=== PATIENT | male | born 1945 | race Caucasian/White ===

== ENCOUNTER 2016-09-26 23:38 | Emergency (ER) | payer MEDICARE ==
[2016-09-26 23:45] VITALS: BP 148/93
[2016-09-27] MEDS ORDERED: Ketorolac INJ* 60 MG/2 ML VIAL IM ONE (01:06)
--- NOTE | 2016-09-27 02:08 | ED ---
Bhavna Torres Edward, scribed for Cristian Yepez MD on 09/27/16 at 0107 . Upper Extremity Pain - HPI Summary HPI Summary: 71 y/o male presents to ED c/o gradual onset, severe R wrist pain starting this morning. The pain is rated 8/10 in severity at triage. The pain is aggravated with movement of the wrist. PMHx chronic wrist pain. - History of Current Complaint Chief Complaint: EDExtremityUpper Stated Complaint: RT WRIST PAIN Time Seen by Provider: 09/27/16 01:03 Hx Obtained From: Patient Timing: Constant, Lasting Hours Severity Currently: Severe Pain Location: Wrist - R wrist Aggravating Factor(s): Movement Associated Signs & Symptoms: Positive: Negative - Allergies/Home Medications Allergies/Adverse Reactions: Allergies Allergy/AdvReac Type Severity Reaction Status Date / Time No Known Allergies Allergy Verified 09/26/16 23:42 PMH/Surg Hx/FS Hx/Imm Hx Previously Healthy: No Cardiovascular History: Reports: Hx Hypertension Infectious Disease History: No Infectious Disease History: Denies: Traveled Outside the [place] in Last 30 Days - Social History Alcohol Use: Occasionally Hx Substance Use: No Substance Use Type: Reports: None Hx Tobacco Use: No Smoking Status (MU): Former Smoker Review of Systems Constitutional: Negative Eyes: Negative ENT: Negative Cardiovascular: Negative Respiratory: Negative Gastrointestinal: Negative Genitourinary: Negative Positive: Arthralgia - R Wrist pain Skin: Negative Neurological: Negative Psychological: Normal All Other Systems Reviewed And Are Negative: Yes Physical Exam Triage Information Reviewed: Yes Vital Signs On Initial Exam: Initial Vitals Temp Pulse Resp Pulse Ox 97.3 F 70 18 95 09/26/16 23:42 09/26/16 23:42 09/26/16 23:42 09/26/16 23:42 Vital Signs Reviewed: Yes Appearance: Positive: Well-Appearing, No Pain Distress Skin: Positive: Warm Head/Face: Positive: Normal Head/Face Inspection Eyes: Positive: MARIA D ENT: Positive: Hearing grossly normal Neck: Positive: Supple Respiratory/Lung Sounds: Positive: Breath Sounds Present Cardiovascular: Positive: RRR Musculoskeletal: Positive: Other - rt wrist mild diffuse tenderness, from Neurological: Positive: Alert, Oriented to Person Place, Time Psychiatric: Positive: Affect/Mood Appropriate Diagnostics - Vital Signs Vital Signs Temp Pulse Resp BP Pulse Ox 09/26/16 23:44 97.4 F 76 18 148/93 97 09/26/16 23:42 97.3 F 70 18 95 - Laboratory Lab Statement: Any lab studies that have been ordered have been reviewed, and results considered in the medical decision making process. - Radiology WRIST XR Xray Interpretation: Positive (See Comments) - ARTHRITIC CHANGES Radiology Interpretation Completed By: ED Physician Course/Dx - Course Assessment/Plan: 71 y/o male presents to ED c/o gradual onset, severe R wrist pain starting this morning. The pain is rated 8/10 in severity at triage. The pain is aggravated with movement of the wrist. PMHx chronic wrist pain. WRIST XR SHOWS ARTHRITIC CHANGES. Pt will be d/c home. - Diagnoses Provider Diagnoses: Wrist pain Discharge - Discharge Plan Condition: Stable Disposition: HOME Prescriptions: Naproxen TAB* [Naprosyn 250 mg TAB*] 500 mg PO BID #30 tab Patient Education Materials: Arthralgia (ED) Referrals: Wanda Hernandez MD [Primary Care Provider] - 3 Days (Please f/u in 2-3 days ) The documentation as recorded by the Bhavna osborn Edward accurately reflects the service I personally performed and the decisions made by , Cristian Yepez MD.
--- NOTE | 2016-09-27 09:43 | RAD ---
Indication: Right wrist pain 3 views of the wrist demonstrates no fracture. Marked degenerative changes of the radiocarpal joint is noted. Scapholunate dissociation is noted. There is calcification of the tracheal fibrocartilage. IMPRESSION: NO FRACTURE OF THE WRIST IS NOTED. DEGENERATIVE CHANGES OF THE RADIOCARPAL JOINT IS NOTED.
== END 2016-09-27 02:05 | disposition home or self-care (01) ==
LOC: ED 23:38
DX: M25.531 Pain in right wrist (principal); Z87.891 Personal history of nicotine dependence
CPT/HCPCS: 96372; 99282; J1885

== ENCOUNTER 2017-04-17 15:03 | Emergency (ER) | payer MEDICARE ==
--- NOTE | 2017-04-17 17:14 | RAD ---
Indication: Acute RIGHT ankle pain and inability to bear weight as well as lateral swelling without preceding injury. History of pseudogout. Comparison: No relevant prior exams available on the [facility] for comparison. Technique: AP, mortise, and lateral views RIGHT ankle. Report: Mild soft tissue swelling over the lateral malleolus. Small talocrural joint effusion. Negative for joint space narrowing or appreciable osteophytosis. Negative for fracture. IMPRESSION: Small joint effusion and mild soft tissue swelling over the lateral malleolus without additional finding.
[2017-04-17 18:13] VITALS: BP 131/71
--- NOTE | 2017-04-18 07:28 | ED ---
Michelle Torres Julia, scribed for Flaco Walters MD on 04/17/17 at 1535 . Lower Extremity - HPI Summary HPI Summary: This patient is a 72 year old M BIBA to [facility] accompanied by his with a chief complaint of sudden R ankle pain upon waking this morning. The patient rates the pain 2/10 in severity. Symptoms aggravated by dorsiflexion and plantarflexion. Patient has taken two ASA twice today. Patient additionally reports previous chronic abdominal pain that he is currently being treated for and a systolic blood pressure of 190 today. He states he is on medication to control his HTN. - History of Current Complaint Chief Complaint: EDExtremityLower Stated Complaint: RT ANKLE PAIN Time Seen by Provider: 04/17/17 15:26 Hx Obtained From: Patient Mechanism Of Injury: Unknown Onset of Pain: Immediate, Hours Onset/Duration: Still Present Pain Intensity: 2 Pain Scale Used: 0-10 Numeric Timing: Constant Location: Is Discrete @ - L ankle Associated Signs And Symptoms: Positive: Negative Aggravating Factor(s): Movement - plantarflexion and dorsiflexion - Allergies/Home Medications Allergies/Adverse Reactions: Allergies Allergy/AdvReac Type Severity Reaction Status Date / Time No Known Allergies Allergy Verified 09/26/16 23:42 PMH/Surg Hx/FS Hx/Imm Hx Cardiovascular History: Reports: Hx Hypertension GI History: Reports: Other GI Disorders - abdominal pain Musculoskeletal History: Reports: Hx Rheumatoid Arthritis Infectious Disease History: Yes Infectious Disease History: Denies: Traveled Outside the [place] in Last 30 Days - Family History Known Family History: Negative: Cardiac Disease - Social History Alcohol Use: Occasionally Hx Substance Use: No Substance Use Type: Reports: None Hx Tobacco Use: No Smoking Status (MU): Former Smoker Review of Systems Positive: Other - elevated BP Positive: Arthralgia - L ankle pain All Other Systems Reviewed And Are Negative: Yes Physical Exam - Summary Physical Exam Summary: Appearance: The patient is well-nourished in no acute distress and in no acute pain. Skin: The skin is warm and dry and skin color reflects adequate perfusion. HEENT: The head is normocephalic and atraumatic. The pupils are equal and reactive. The conjunctivae are clear and without drainage. Nares are patent and without drainage. Mouth reveals moist mucous membranes and the throat is without erythema and exudate. The external ears are intact. The ear canals are patent and without drainage. The tympanic membranes are intact. Neck: the neck is supple with full range of motion and non-tender. There are no carotid bruits. There is no neck vein distension. Respiratory: Chest is non-tender. Lungs are clear to auscultation and breath sounds are symmetrical and equal. Cardiovascular: Heart is regular rate and rhythm. There is no murmur or rub auscultated. There is no peripheral edema and pulses are symmetrical and equal. Abdomen: The abdomen is soft and non-tender. There are normal bowel sounds heard in all four quadrants and there is no organomegaly palpated. Musculoskeletal: There is no back tenderness noted. Extremities are with full range of motion. There is tenderness over the distal tip of the right medial malleolus. There is medial tenderness with valgus stress to the right ankle. There is good capillary refill. There is no peripheral edema or calf tenderness elicited. Neurological: Patient is alert and oriented to person, place and time. The patient has symmetrical motor strength in all four extremities. Cranial nerves are grossly intact. Deep tendon reflexes are symmetrical and equal in all four extremities. Psychiatric: The patient has an appropriate affect and does not exhibit any anxiety or depression. Triage Information Reviewed: Yes Vital Signs On Initial Exam: Initial Vitals Temp Pulse Resp BP Pulse Ox 99.2 F 66 18 175/104 98 04/17/17 15:08 04/17/17 15:08 04/17/17 15:08 04/17/17 15:08 04/17/17 15:08 Vital Signs Reviewed: Yes Diagnostics - Vital Signs Vital Signs Temp Pulse Resp BP Pulse Ox 04/17/17 15:08 99.2 F 66 18 175/104 98 - Laboratory Lab Statement: Any lab studies that have been ordered have been reviewed, and results considered in the medical decision making process. - Radiology R ankle XR Radiology Interpretation Completed By: Radiologist - Small joint effusion and mild soft tissue swelling over the lateral malleolus without additional finding. ED Physician has reviewed this report. Lower Extremity Course/Dx - Course Course Of Treatment: Mr. Melchor woke up this am with left ankle pain making it hard to walk. He has no known trauma. He is currently being W/U'd for abdominal pain and had a HIDA scan yesterday. He denies fever and is afebrile here. His ankle was nontender to ROM except mildly to eversion. He was tender over the tip of his medial malleolus. There was no erythema. It was mildly warm to touch. Vitals were normal. X-ray showed a mild effusion and some mild swelling laterally. This clinically does not seem to represent a septic joint with full ROM both active and passive. I recommended conservative treatment and F/U if not improving first of the week. - Diagnoses Provider Diagnoses: Inflammation of right ankle joint Discharge - Discharge Plan Condition: Stable Disposition: HOME Patient Education Materials: Swollen Joint (ED) Referrals: Alessio Gant MD [Medical Doctor] - (Follow up with Dr. Gant next week.) Additional Instructions: Take Ibuprofen for your pain and inflammation. The documentation as recorded by the Michelle osborn Julia accurately reflects the service I personally performed and the decisions made by me, Flaco Walters MD.
== END 2017-04-17 18:36 | disposition home or self-care (01) ==
LOC: ED 15:03
DX: M19.071 Primary osteoarthritis, right ankle and foot (principal); I10 Essential (primary) hypertension; Z87.891 Personal history of nicotine dependence; M06.9 Rheumatoid arthritis, unspecified; R10.9 Unspecified abdominal pain; G89.29 Other chronic pain
CPT/HCPCS: 99282

== ENCOUNTER 2018-05-21 05:59 | Emergency (ER) | payer MEDICARE ==
--- NOTE | 2018-05-21 06:17 | ED ---
Upper Extremity Pain - HPI Summary HPI Summary: Pt. is a 73 y.o male who presents to the ER for left wrist pain that started acutely through the night. Pt. denies any falls, injuries, or provocative factors. Pt. states he has a hx of gout and arthritis. Pt. states he has had gout in right wrist with similar sxs. Pt. is currently on allopurinol. Pt. denies fever, chills, NV. Sxs are mild in severity. Movement makes sxs worse. Nothing makes sxs better. Denies change in diet. - History of Current Complaint Chief Complaint: EDExtremityUpper Stated Complaint: "LEFT WRIST PAIN" PER PT Time Seen by Provider: 05/21/18 06:14 Hx Obtained From: Patient - Allergies/Home Medications Allergies/Adverse Reactions: Allergies Allergy/AdvReac Type Severity Reaction Status Date / Time No Known Allergies Allergy Verified 05/21/18 06:04 Home Medications: Home Medications Allopurinol 100 mg PO DAILY 05/21/18 [History Confirmed 05/21/18] Amlodipine Besylate [Amlodipine 2.5 mg tab] 2.5 mg PO DAILY 05/21/18 [History Confirmed 05/21/18] Aspirin 81 mg PO DAILY 05/21/18 [History Confirmed 05/21/18] Cyanocobalamin TAB* [Vitamin B12 TAB*] 500 mcg PO BID 05/21/18 [History Confirmed 05/21/18] Loratadine [Claritin 10 MG CAP] 10 mg PO DAILY 05/21/18 [History Confirmed 05/21] Omeprazole 20 mg PO DAILY 05/21/18 [History Confirmed 05/21/18] Rosuvastatin Calcium 20 mg PO DAILY 05/21/18 [History Confirmed 05/21/18] PMH/Surg Hx/FS Hx/Imm Hx Previously Healthy: Yes Cardiovascular History: Reports: Hx Hypertension GI History: Reports: Other GI Disorders - abdominal pain Musculoskeletal History: Reports: Hx Rheumatoid Arthritis Infectious Disease History: No Infectious Disease History: Denies: Traveled Outside the [place] in Last 30 Days - Family History Known Family History: Positive: Non-Contributory Negative: Cardiac Disease - Social History Occupation: Retired Lives: Alone Alcohol Use: Occasionally Hx Substance Use: No Substance Use Type: Reports: None Hx Tobacco Use: No Smoking Status (MU): Former Smoker Review of Systems Constitutional: Negative Negative: Fever, Chills Positive: Other - Left wrist pain Negative: Weakness, Paresthesia, Numbness All Other Systems Reviewed And Are Negative: Yes Physical Exam Triage Information Reviewed: Yes Vital Signs On Initial Exam: Initial Vitals Temp Pulse Resp BP Pulse Ox 97.6 F 85 16 166/97 98 05/21/18 06:01 05/21/18 06:01 05/21/18 06:01 05/21/18 06:01 05/21/18 06:01 Vital Signs Reviewed: Yes Appearance: Positive: Well-Appearing - Pt. sitting up in bed holding left wrist. In NAD. Skin: Positive: Warm, Dry Head/Face: Positive: Normal Head/Face Inspection Eyes: Positive: Normal, EOMI Neck: Positive: Supple Musculoskeletal: Positive: Other - Diffuse pain to left wrist with palpation, flexion/extension. Mild increased warmth. No erythema, wounds, or signs of infection. Good radial pulse. Neurological: Positive: Normal, CN Intact II-III Psychiatric: Positive: Affect/Mood Appropriate Diagnostics - Vital Signs Vital Signs Temp Pulse Resp BP Pulse Ox 05/21/18 06:01 97.6 F 85 16 166/97 98 - Laboratory Lab Statement: Any lab studies that have been ordered have been reviewed, and results considered in the medical decision making process. Course/Dx - Course Course Of Treatment: Pt. presenting for atruamatic left wrist pain. Afebrile. Xray shows degenerative changes without acute findings per my reading. Will treat for suspect gout with prednisone. To elevate and apply cool compress. Close f.u with PCP and ortho. if sxs persist. To return to ER for increased, pain, fever, redness. Pt. understands and agrees with plan. - Diagnoses Differential Diagnosis/HQI/PQRI: Positive: Arthritis, Fracture (Closed), Strain , Sprain Provider Diagnoses: Wrist pain, Gout attack Discharge - Sign-Out/Discharge Documenting (check all that apply): Patient Departure Patient Received Moderate/Deep Sedation with Procedure: No - Discharge Plan Condition: Good Disposition: HOME Prescriptions: predniSONE TAB* [Deltasone 20 MG TAB*] 40 mg PO DAILY #10 tab Patient Education Materials: Gout (ED), Arthralgia (ED) Referrals: [facility] [Outside] Alessio Bui MD [Medical Doctor] - Additional Instructions: Schedule a follow up appointment with PCP and orthopedics if pain persist Prednisone as directed Elevate wrist and apply cool compress Return to ER for fever, increased pain, redness, or if concerned - Billing Disposition and Condition Condition: GOOD Disposition: Home
[2018-05-21] MEDS ORDERED: predniSONE TAB* 20 MG PO ONE (06:31)
[2018-05-21 07:15] VITALS: BP 155/71
== END 2018-05-21 07:13 | disposition home or self-care (01) ==
LOC: ED 05:59
DX: M25.532 Pain in left wrist (principal); M10.9 Gout, unspecified; I10 Essential (primary) hypertension; M06.9 Rheumatoid arthritis, unspecified; Z87.891 Personal history of nicotine dependence; Z79.82 Long term (current) use of aspirin
CPT/HCPCS: 99282; J7512